=== PATIENT | male | born 1980 | race Caucasian/White ===

== ENCOUNTER 2020-01-05 14:23 | Emergency (ER) | payer SELFPAY ==
[~2020-01-05] VITALS: Ht 182.9 cm; Wt 82.0 kg
[2020-01-05] MEDS ORDERED: ASPIRIN 81 MG CHEW TABLET PO ONE (15:15)
[2020-01-05] MEDS ORDERED: ALBUTEROL 90 MCG/ACT 8GM HFA INHALER INH ONE (15:15)
[2020-01-05] MEDS ORDERED: COMBIVENT RESPIMAT 100-20MCG INHALER 4GM INH ONE (15:15)
[2020-01-05 15:39] LABS: BASO # 0.1 10^3/uL (0.0-0.2); BASO % 0.7 % (0.0-1.0); EOS # 0.3 10^3/uL (0.0-0.5); EOS % 3.6 % (0.0-3.0); HEMATOCRIT 44.1 % (42.0-52.0); HEMOGLOBIN 14.7 g/dl (13.5-17.5); LYMPH # 1.9 10^3/uL (1.5-5.0); LYMPH % 22.4 % (24.0-44.0); MEAN CORPUSCULAR HEMOGLOBIN 31.1 pg (27.0-33.0); MEAN CORPUSCULAR HGB CONC 33.3 g/dl (32.0-36.5); MEAN CORPUSCULAR VOLUME 93.2 fl (80.0-96.0); MONO # 0.6 10^3/uL (0.0-0.8); MONO % 7.7 % (0.0-5.0); NEUTROPHILS # 5.4 10^3/uL (1.5-8.5); NEUTROPHILS % 65.2 % (36.0-66.0); PLATELET COUNT, AUTOMATED 365 10^3/uL (150-450); RED BLOOD COUNT 4.73 10^6/uL (4.30-6.10); WHITE BLOOD COUNT 8.3 10^3/uL (4.0-10.0)
[2020-01-05 15:51] LABS: INR 0.97; PROTHROMBIN TIME 12.6 SECONDS (11.8-14.0)
[2020-01-05 15:58] LABS: D-DIMER QUANT < 270 ng/ml (<500)
[2020-01-05 16:05] LABS: ALBUMIN 3.6 GM/DL (3.2-5.2); ALT/SGPT 21 U/L (12-78); BILIRUBIN,DIRECT 0.1 MG/DL (0.0-0.2); BILIRUBIN,TOTAL 0.2 MG/DL (0.2-1.0); BLOOD UREA NITROGEN 9 MG/DL (7-18); CALCIUM LEVEL 8.6 MG/DL (8.5-10.1); CARBON DIOXIDE LEVEL 26 MEQ/L (21-32); CHLORIDE LEVEL 107 MEQ/L (98-107); CK-MB VALUE MASS 1.2 NG/ML (<3.6); CPK CREATINE PHOSPHOKINASE 78 U/L (39-308); CREATININE FOR GFR 0.75 MG/DL (0.70-1.30); GLOMERULAR FILTRATION RATE > 60.0 (>60); GLUCOSE, FASTING 81 MG/DL (70-100); MB/CK RELATIVE INDEX 1.54 (< OR =4); POTASSIUM SERUM 4.3 MEQ/L (3.5-5.1); SODIUM LEVEL 139 MEQ/L (136-145); TOTAL PROTEIN 7.1 GM/DL (6.4-8.2); TROPONIN I < 0.02 NG/ML (< 0.10)
--- NOTE | 2020-01-05 16:11 | ECGEPIP ---
[facility] - ED Test Date: 2020-01-05 Pat Name: SHON OLIVER Department: Room: - Gender: Male Transport Tech: tanya : 1980 Requested By: MARINA VARELA Order Number: [id number] Reading MD: Yuri James Measurements Intervals [place] Rate: 90 P: 75 [place]: 152 QRS: 92 QRSD: 80 T: 48 QT: 352 QTc: 433 Interpretive Statements SINUS RHYTHM POSSIBLE LEFT ATRIAL ENLARGEMENT BORDERLINE RIGHT AXIS DEVIATION POSSIBLE RIGHT VENTRICULAR CONDUCTION DELAY DELAYED R WAVE PROGRESSION NONSPECIFIC ST T WAVE CHANGES NO PRIOR ECG FOR COMPARISON Electronically Signed on 01-05-2020 16:10:54 EDT by Yuri James
[2020-01-05] MEDS ORDERED: PROAAER10 INH (16:42)
[2020-01-05] MEDS ORDERED: IBUP-1022 PO (16:42)
[2020-01-05 16:45] VITALS: BP 146/74
--- NOTE | 2020-01-06 11:50 | REP ---
AP PORTABLE CHEST: 01/05/2020. CLINICAL HISTORY: Dyspnea and cough. FINDINGS: No prior study. Lungs are well inflated. The CP angles sharply defined. There is no infiltrate, effusion, atelectasis, or mass. Heart, mediastinal and hilar contours are normal. The aorta and airway are intact. Bony thorax shows minor dextroconvex curve in the mid thoracic spine but no focal lesion, and in the ribs, scapulae, and shoulders intact. No free air. IMPRESSION: 1. No acute cardiopulmonary change. Electronically Signed by Marcelo Trevizo MD 01/06/2020 06:51 P
== END 2020-01-05 17:03 | disposition home or self-care (01) ==
LOC: M ED 14:23
DX: R09.1 Pleurisy (principal); F17.210 Nicotine dependence, cigarettes, uncomplicated